=== PATIENT | female | born 1930 | race Caucasian/White ===

== ENCOUNTER 2017-12-28 13:10 | Inpatient (IN) ==
[2017-12-28] MEDS ORDERED: LACTATED RINGERS 1,000 ML IV ONE (13:20)
--- NOTE | 2017-12-28 13:22 | Emergency Department Note ---
General Adult HPI - General Chief complaint: Recheck/Abnormal Lab/Rx Stated complaint: low potassium Time Seen by Provider: 12/28/17 13:19 Source: patient Mode of arrival: ambulatory Limitations: no limitations - History of Present Illness HPI Narrative: 87-year-old female extremely hard of hearing living at [facility] presenting with 3 day history of reported productive cough sounds of crackles from the attending physician at [facility] as well as reported hypokalemia at 2.9 at [facility]. She presents today meeting SIRS criteria with fever and tachycardia, HPI extremely limited secondary to patient's mental status and extremely hard of hearing. She denies pain. She is accompanied by multiple family members who states that she was previously at [facility] due to an acute on chronic kidney failure with most recent kidney function as a 12/22 and 1.4. No other symptoms present. - Related Data Home Medications Medication Instructions Recorded Confirmed Acetaminophen [Arthritis Pain 650 mg PO Q4H PRN 12/28/17 12/28/17 Relief] Bisacodyl [Dulcolax] 10 mg UT DAILYP PRN 12/28/17 12/28/17 Cholecalciferol (Vitamin D3) [D3 2,000 unit PO DAILY 12/28/17 12/28/17 Dots] Diltiazem HCl [Diltiazem ER] 180 mg PO DAILY 12/28/17 12/28/17 Furosemide [Lasix] 20 mg PO BID 12/28/17 12/28/17 Insulin Glargine,Hum.rec.anlog 10 unit SQ QHS 12/28/17 12/28/17 [Lantus Solostar] Ipratropium/Albuterol [Duoneb] 3 ml NEB Q4H PRN 12/28/17 12/28/17 Loratadine [Claritin] 10 mg PO DAILY 12/28/17 12/28/17 Magnesium Hydroxide [Milk of 30 ml PO BIDP PRN 12/28/17 12/28/17 Magnesia] Metolazone [Zaroxolyn] 2.5 mg PO DAILY 12/28/17 12/28/17 Metoprolol Tartrate [Lopressor] 25 mg PO BID 12/28/17 12/28/17 Montelukast [Singular] 10 mg PO DAILY 12/28/17 12/28/17 Na Phos,M-B/Na Phos,Di-Ba [Fleets 1 dose UT DAILYP PRN 12/28/17 12/28/17 Adult] PARoxetine HCL [Paroxetine HCl] 20 mg PO DAILY 12/28/17 12/28/17 Polyethylene Glycol 3350 [Miralax] 17 gm PO DAILYP PRN 12/28/17 12/28/17 Warfarin [Coumadin] 1 mg PO DAILY 12/28/17 12/28/17 Warfarin [Coumadin] 5 mg PO DAILY 12/28/17 12/28/17 Allergies Allergy/AdvReac Type Severity Reaction Status Date / Time morphine Allergy Verified 12/28/17 13:18 Review of Systems All systems ED: reviewed and negative except as stated. Past Medical History - Past Medical History Source: old records reviewed, nursing notes reviewed Medical history: Reports: atrial fibrillation, CHF, coronary artery disease, dementia, other (CKD) - Social History smoking status: Unknown if ever smoked Physical Exam Limitations: no limitations General appearance: alert, lethargic Head: atraumatic, normocephalic Eye: Present: normal appearance, PERRL, EOMI ENT: mucous membranes dry Neck: Present: normal inspection, full ROM. Absent: tenderness Chest: Present: normal inspection, symmetric chest wall rise Respiratory: Present: wheezes (wet crackles bibasilar, distant sounds), accessory muscle use, prolonged expiratory phase Cardiovascular: Present: tachycardia, irregular rhythm Abdominal: Present: soft, normal bowel sounds. Absent: distention, tenderness, guarding, rebound Neurological: Present: alert, other (extremely hard of hearing). Absent: oriented X3 Skin: Present: dry, pallor Course Vital Signs Temperature 100.7 F H 12/28/17 13:12 Pulse Rate 103 H 12/28/17 13:12 Respiratory Rate 22 12/28/17 13:12 Blood Pressure 113/72 12/28/17 13:12 Pulse Oximetry (%) 92 12/28/17 13:12 Temperature 100.7 F H 12/28/17 13:12 Pulse Rate 72 12/28/17 15:48 Respiratory Rate 23 H 12/28/17 15:48 Blood Pressure 119/58 12/28/17 15:46 Pulse Oximetry (%) 95 12/28/17 15:48 Medical Decision Making - [facility] Narrative Medical decision making narrative: patient presenting with hypokalemia on routine lab draw at 2.9, however came in meeting SIRS criteria. CBC, CMP, venous lactate, procalcitonin, XR chest obtained and blood culture x 1, with XR demonstrating moderate right basilar infiltrate, CBC demonstrating leukocytosis at 15,800 with granulocyte predominance. Baseline Cr 1.4, patient has slight JOHN with Cr 1.6, eGFR 28, with venous lactic acid normal at 2.0. EKG demonstrating stable atrial fibrillation. SEPSIS protocol observed, patient given 750mg IV Levaquin, 1g Rocephin. Admitted for Sepsis 2/2 CAP with acute kidney injury and hypokalemia at 3.0, with Dr. Yung admitting. Patient DNR/DNI full medical interventions. - Lab Data Lab results reviewed: Yes I reviewed the patient's lab results. Result diagrams: 12/28/17 14:07 12/28/17 14:07 Lab Results 12/28/17 12/28/17 12/28/17 Range/Units 14:07 14:07 14:07 WBC 14.6 H (4.5-11.0) K/mcL RBC 4.52 (4.00-5.20) M/mcL Hgb 13.1 (12.0-15.0) g/dL Hct 40.6 (36.0-48.0) % MCV 89.9 (80.0-100.0) fL MCH 29.0 (26.0-34.0) pg MCHC 32.2 (31.0-36.0) g/dL RDW 15.2 H (11.5-14.5) % Plt Count 338 (140-440) K/mcL MPV 10.3 (7.4-10.4) fL Gran % 81.4 H (38.0-78.0) % Lymph % (Auto) 7.0 L (15.5-49.0) % [place] % (Auto) 9.8 (1.0-12.0) % Eos % (Auto) 1.6 (0.0-7.0) % Baso % (Auto) 0.2 (0.0-2.0) % Gran # 11.9 H (1.8-8.0) K/mcL Lymph # (Auto) 1.0 L (1.5-4.8) K/mcL [place] # (Auto) 1.4 H (0.1-0.9) K/mcL Eos # (Auto) 0.2 (0.0-0.7) K/mcL Baso # (Auto) 0 (0.0-0.3) K/mcL PT (11.9-14.5) sec INR (0.9-1.1) VBG Lactic Acid 2.1 (0.5-2.2) mmol/L Sodium 132 L (133-145) mmol/L Potassium 3.0 L (3.3-5.1) mmol/L Chloride 87 L (96-108) mmol/L Carbon Dioxide 31 H (22-30) mmol/L Anion Gap 14.0 (8-16) BUN 53 H (8-23) mg/dl Creatinine 1.6 H (0.6-1.1) mg/dl GFR Calculation 28 Glucose 232 H (70-105) mg/dL Calcium 9.7 (8.6-10.4) mg/dl Total Bilirubin 0.6 (0.0-1.0) mg/dL AST 39 H (0-37) U/l ALT 37 (0-40) U/l Alkaline Phosphatase 96 (39-117) U/L NT-Pro-B Natriuret Pep 4727.0 H (0-450) pg/ml Total Protein 7.3 (5.9-8.4) gm/dL Albumin 3.5 (3.2-5.2) gm/dL Globulin 3.8 H (2.2-3.7) gm/dL Albumin/Globulin Ratio 0.9 L (1.0-2.3) Procalcitonin (<0.10) ng/mL Urine Color Urine Appearance Urine pH (5.0-9.0) Ur Specific [place] (1.000-1.035) Urine Protein (NEG) mg/dL Urine Glucose (UA) (NEG) mg/dL Urine Ketones (NEG) mg/dL Urine Occult Blood (<0.03) mg/dL Urine Nitrate (NEG) Urine Bilirubin (NEG) mg/dL Urine Urobilinogen (NEG) mg/dL Ur Leukocyte Esterase (NEG) /uL Urine RBC (0-1) /hpf Urine WBC (0-4) /hpf Ur Squamous Epith Cells (0-4) /hpf Ur Transition Epith Cell (0-2) /hpf Urine Bacteria (0) /hpf Urine Mucus (0) /hpf Ur Culture Indicated? 12/28/17 12/28/17 12/28/17 Range/Units 14:07 14:07 14:49 WBC (4.5-11.0) K/mcL RBC (4.00-5.20) M/mcL Hgb (12.0-15.0) g/dL Hct (36.0-48.0) % MCV (80.0-100.0) fL MCH (26.0-34.0) pg MCHC (31.0-36.0) g/dL RDW (11.5-14.5) % Plt Count (140-440) K/mcL MPV (7.4-10.4) fL Gran % (38.0-78.0) % Lymph % (Auto) (15.5-49.0) % [place] % (Auto) (1.0-12.0) % Eos % (Auto) (0.0-7.0) % Baso % (Auto) (0.0-2.0) % Gran # (1.8-8.0) K/mcL Lymph # (Auto) (1.5-4.8) K/mcL [place] # (Auto) (0.1-0.9) K/mcL Eos # (Auto) (0.0-0.7) K/mcL Baso # (Auto) (0.0-0.3) K/mcL PT 31.6 H (11.9-14.5) sec INR 3.0 H (0.9-1.1) VBG Lactic Acid (0.5-2.2) mmol/L Sodium (133-145) mmol/L Potassium (3.3-5.1) mmol/L Chloride (96-108) mmol/L Carbon Dioxide (22-30) mmol/L Anion Gap (8-16) BUN (8-23) mg/dl Creatinine (0.6-1.1) mg/dl GFR Calculation Glucose (70-105) mg/dL Calcium (8.6-10.4) mg/dl Total Bilirubin (0.0-1.0) mg/dL AST (0-37) U/l ALT (0-40) U/l Alkaline Phosphatase (39-117) U/L NT-Pro-B Natriuret Pep (0-450) pg/ml Total Protein (5.9-8.4) gm/dL Albumin (3.2-5.2) gm/dL Globulin (2.2-3.7) gm/dL Albumin/Globulin Ratio (1.0-2.3) Procalcitonin 0.12 (<0.10) ng/mL Urine Color Yellow Urine Appearance Clear Urine pH 5.0 (5.0-9.0) Ur Specific [place] 1.011 (1.000-1.035) Urine Protein Neg (NEG) mg/dL Urine Glucose (UA) Negative (NEG) mg/dL Urine Ketones Neg (NEG) mg/dL Urine Occult Blood Neg (<0.03) mg/dL Urine Nitrate Neg (NEG) Urine Bilirubin Neg (NEG) mg/dL Urine Urobilinogen Neg (NEG) mg/dL Ur Leukocyte Esterase Neg (NEG) /uL Urine RBC 1 (0-1) /hpf Urine WBC 7 H (0-4) /hpf Ur Squamous Epith Cells 7 H (0-4) /hpf Ur Transition Epith Cell 1 (0-2) /hpf Urine Bacteria 0 (0) /hpf Urine Mucus Few (0) /hpf Ur Culture Indicated? No - Radiology Data Radiology results reviewed: Yes I reviewed the patient's radiology results. Disposition Pt seen by [facility]/PA only: No Clinical Impression: Hypokalemia Sepsis Qualifiers: Sepsis type: sepsis due to unspecified organism Qualified Code(s): A41.9 - Sepsis, unspecified organism CAP (community acquired pneumonia) Qualifiers: Laterality: left Lung location: upper lobe of lung Qualified Code(s): J18.1 - Lobar pneumonia, unspecified organism Acute on chronic kidney failure Qualifiers: Acute renal failure type: unspecified Chronic kidney disease stage: stage 4 ( severe) Qualified Code(s): N17.9 - Acute kidney failure, unspecified; N18.4 - Chronic kidney disease, stage 4 (severe) Disposition: Xfer [facility] Referrals: Cali Pride MD [Family Provider] -
--- NOTE | 2017-12-28 14:01 | XRay Report ---
CLINICAL INFORMATION: Cough COMPARISON: None. FINDINGS: Marked cardiomegaly appreciated. Mediastinum and pulmonary vessels are normal. Moderate sized alveolar infiltrate appear mediastinal left upper lobe appreciated. Is mild atelectasis in the right base. No effusion severe T11 and moderate T4-T8 compression fractures noted IMPRESSION: 1. Moderate left upper lobe infiltrate 2. Marked cardiomegaly, but no evidence of CHF 3. Osteoporotic compression fractures Interpreted and Authenticated by: Sourav Camacho 12/28/17
[2017-12-28] MEDS ORDERED: cefTRIAXone 1 GM VIAL IV ONE (14:07)
[2017-12-28] MEDS ORDERED: LEVOFLOXACIN 750 MG/150 ML BAG IV ONE (14:07)
[2017-12-28 14:48] LABS: Basophils # (Auto) 0 K/mcL (0.0-0.3); Basophils % (Auto) 0.2 % (0.0-2.0); Eosinophils # (Auto) 0.2 K/mcL (0.0-0.7); Eosinophils % (Auto) 1.6 % (0.0-7.0); Granulocytes % (Auto) 81.4 % (38.0-78.0); Mean Cell Volume 89.9 fL (80.0-100.0); Mean Corpuscular HGB Conc 32.2 g/dL (31.0-36.0); Monocytes # (Auto) 1.4 K/mcL (0.1-0.9); Monocytes % (Auto) 9.8 % (1.0-12.0); Platelet Count 338 K/mcL (140-440); RBC 4.52 M/mcL (4.00-5.20); Red Cell Distribution Width 15.2 % (11.5-14.5)
[2017-12-28 15:07] LABS: ALT/SGPT 37 U/l (0-40); Albumin 3.5 gm/dL (3.2-5.2); Albumin/Globulin Ratio 0.9 (1.0-2.3); Alkaline Phosphatase 96 U/L (39-117); Blood Urea Nitrogen 53 mg/dl (8-23)
[2017-12-28 15:21] LABS: Appearance,Urine CLEAR; Bilirubin,Urine NEG (NEG); Color,Urine YELLOW; Glucose,Urine (UA) NEGATIVE (NEG); Leukocyte Esterase,Urine NEG /uL (NEG); Protein,Urine NEG (NEG); Specific Gravity,Urine 1.011 (1.000-1.035); Urine Blood NEG mg/dL (<0.03); Urobilinogen,Urine NEG (NEG)
[2017-12-28 15:40] LABS: Bacteria,Urine 0 /hpf (0); Mucus,Urine FEW /hpf (0); Urine RBC 1 /hpf (0-1); Urine Squamous Epithelial Cell 7 /hpf (0-4); Urine Transitional Epi Cells 1 /hpf (0-2); Urine WBC 7 /hpf (0-4)
[2017-12-28] MEDS ORDERED: DEXTROSE 50% 50 ML VIAL IV PRN (17:47)
[2017-12-28] MEDS ORDERED: ACETAMINOPHEN 325 MG TABLET PO PRN ×2 (17:47)
[2017-12-28] MEDS ORDERED: ONDANSETRON 4 MG/2 ML VIAL IV PRN (17:47)
[2017-12-28] MEDS ORDERED: DEXTROSE 31 GM ORAL.SUSP PO PRN (17:47)
[2017-12-28] MEDS: INSULIN LISPRO 1 UNIT/0.01 ML UNIT SQ SCH ×2 (18:40→22:09)
[2017-12-28] MEDS: LACTATED RINGERS 1,000 ML IV SCH (18:48)
[2017-12-28] MEDS: IPRATROPIUM/ALBUTEROL 3 ML AMPUL.NEB NEB SCH (19:14)
[2017-12-28 19:50] LABS: Hemoglobin A1C 6.3 % HGB (4.0-6.0)
--- NOTE | 2017-12-28 20:49 | Internal Med History&Physical ---
Medical - H&P: [facility] Patient information: Note initiated : 12/28/17 at 8:46 pm Service Date, if different from initiated Date: [] Patient: Pratibha Palcaio 87 y/o F admitted on 12/28/17 for low potassium. Chief complaint: Cough, confusion History of present illness: The patient is an 7-year-old female with a history of atrial fibrillation, dementia, chronic kidney disease stage III, congestive heart failure, type 2 diabetes presents from her living facility with confusion, chills and 3 days of cough. History is obtained speaking to the patient's family, speaking with Dr. Reid from the ED and in reviewing records. Patient is unable to give history due to dementia and hard of hearing. For about the last 3 days, the patient has had a cough. Apparently rales were also noted today. Family tells me that today while trying D lunch she seemed to be confused had difficulty doing so. There was no apparent choking or coughing associated with trying to eat. She also is feeling chilled at this afternoon. Today she seemed to be shivering and cold at times as well. Patient 's family says she always has some cough but it seems to be worse than usual. She normally uses nebulizer once or twice a day. In addition the patient had potassium of 2.6 and was sent to the ED due to that. The emergency department, the patient is noted at white count of 14,000, febrile to 100.7, was mildly tachycardic with a pulse of 103. Chest radiograph shows left upper lobe infiltrate, though the right lower lobe also appears to have some infiltrate versus atelectasis. She is being admitted the hospital for sepsis from pneumonia. Other than above, remainder review of history cannot really be obtained reliably due to her underlying dementia. Family is unaware of any nausea, vomiting, diarrhea, or other infectious symptoms. ROS unobtainable: due to mental status Medical - H&P: [facility] Medical history: Type 2 diabetes mellitus, recently off of metformin, now on Lantus Congestive heart failure with cardiomegaly Heart appearing Chronic kidney disease stage III History of acute kidney injury about 2 weeks ago, creatinine to 2.6, felt due to dehydration and Celebrex. Creatinine 1.4 at discharge from [facility] last week. Dementia Atrial fibrillation, on warfarin Home oxygen, 1 lpm when in bed Surgical history: Unknown Pertinent family history: No family history of lung disease according to the family Social history: The patient had been living independently near [place] with daytime caregivers. She was hospitalized at [facility] for about 6 days earlier this month due to acute kidney injury, has been in [facility] since discharge from there last week. She has never smoked. She does not drink alcohol. Medical - H&P: Meds Home Medications Medication Instructions Recorded Confirmed Type Cholecalciferol (Vitamin D3) [D3 2,000 unit PO DAILY 12/28/17 12/29/17 History Dots] Diltiazem HCl [Diltiazem ER] 180 mg PO DAILY 12/28/17 12/29/17 History Furosemide [Lasix] 20 mg PO BID 12/28/17 12/29/17 History Insulin Glargine,Hum.rec.anlog 10 unit SQ QHS 12/28/17 12/29/17 History [Lantus Solostar] Loratadine [Claritin] 10 mg PO DAILY 12/28/17 12/29/17 History Metolazone [Zaroxolyn] 2.5 mg PO DAILY 12/28/17 12/29/17 History Metoprolol Tartrate [Lopressor] 25 mg PO BID 12/28/17 12/29/17 History Montelukast [Singular] 10 mg PO DAILY 12/28/17 12/29/17 History PARoxetine HCL [Paroxetine HCl] 20 mg PO DAILY 12/28/17 12/29/17 History Warfarin [Coumadin] 1 mg PO DAILY 12/28/17 12/29/17 History Warfarin [Coumadin] 5 mg PO DAILY 12/28/17 12/29/17 History Accu-Chek 1 each FS BID 12/29/17 12/29/17 History Potassium Chloride [Kdur] 20 meq PO DAILY 12/29/17 12/29/17 History Allergies Allergy/AdvReac Type Severity Reaction Status Date / Time morphine Allergy Verified 12/28/17 13:18 Medical - H&P: Exam - Constitutional Vitals: Temp Pulse Resp BP Pulse Ox 98.9 F 72 26 H 97/65 97 12/28/17 18:30 12/28/17 19:29 12/28/17 19:29 12/28/17 20:01 12/28/17 20:01 GENERAL: Alert, hard of hearing, tends to answer in one-word sentences HEENT: Atraumatic. PERRL, conjunctiva clear, no scleral icterus. Hearing grossly intact. Oropharynx with tacky mucous membranes, no lip or gum lesions. Tongue midline. NECK: Supple without meningismus, no thyromegaly RESPIRATORY: Rales in L>R bases, no wheezes or rhonchi. Respiratory effort is unlabored. CARDIOVASCULAR: Irregularlyl irregular rate and rhythm, 2/6 apical systolic murmur, no gallop or rub. No peripheral edema. Carotid pulses 2+ without bruit. GI: Abdomen soft, mild discomfort with palpation, but not angelina tenderness, no guarding or rebound. No hepatosplenomegaly. LYMPHATIC: No cervical or supraclavicular lymphadenopathy MUSCULOSKELETAL: No joint erythema or swelling, normal range of motion in extremities. Muscle mass normal for age. SKIN: Warm, dry. Chronic stasis changes/pigmentation in bilateral lower extremities. Dressed skin wound on the mid lateral right leg, no surrounding erythema. Skin turgor decreased. NEUROLOGIC: Cranial nerves II through XII grossly intact except for hard of hearing. Sensation intact to light touch bilaterally. PSYCHIATRIC: Alert, oriented to self, slow to respond. Medical - H&P: [facility]lt - Labs CBC & Chem 7: 12/29/17 03:35 12/29/17 03:35 Labs: Short CBC 12/28/17 Range/Units 14:07 WBC 14.6 H (4.5-11.0) K/mcL Hgb 13.1 (12.0-15.0) g/dL Hct 40.6 (36.0-48.0) % Plt Count 338 (140-440) K/mcL [facility] 12/28/17 14:07 Sodium 132 L Potassium 3.0 L Chloride 87 L Carbon Dioxide 31 H BUN 53 H Creatinine 1.6 H Glucose 232 H Calcium 9.7 Liver Function 12/28/17 Range/Units 14:07 Total Bilirubin 0.6 (0.0-1.0) mg/dL AST 39 H (0-37) U/l ALT 37 (0-40) U/l Alkaline Phosphatase 96 (39-117) U/L Albumin 3.5 (3.2-5.2) gm/dL Urine 12/28/17 Range/Units 14:49 Urine Color Yellow Urine Appearance Clear Urine pH 5.0 (5.0-9.0) Ur Specific [place] 1.011 (1.000-1.035) Urine Protein Neg (NEG) mg/dL Urine Glucose (UA) Negative (NEG) mg/dL - EKG Data -: EKG Reviewed by Myself (AF with VPC, no acute injury) - Impressions CXR, images reviewed FINDINGS: Marked cardiomegaly appreciated. Mediastinum and pulmonary vessels are normal. Moderate sized alveolar infiltrate appear mediastinal left upper lobe appreciated. Is mild atelectasis in the right base. No effusion severe T11 and moderate T4-T8 compression fractures noted IMPRESSION: 1. Moderate left upper lobe infiltrate 2. Marked cardiomegaly, but no evidence of CHF 3. Osteoporotic compression fractures Medical - H&P: A/P (1) Sepsis Current visit: Yes Status: Acute (2) CAP (community acquired pneumonia) Current visit: Yes Status: Acute (3) CKD (chronic kidney disease) stage 3, GFR 30-59 ml/min Current visit: Yes Status: Acute (4) Atrial fibrillation Current visit: Yes Status: Acute (5) Type 2 diabetes mellitus without complications Current visit: Yes Status: Acute - Narrative A/P Narrative: 87-year-old female presenting with decreased functional capacity, 3 days of cough, subjective chills, found to have tachycardia, fever, leukocytosis and infiltrate consistent with sepsis from pneumonia. Sepsis. Source appears to be the lungs. Not severe sepsis. Lactate normal, hemodynamically stable other mild tachycardia. Plan: Inpatient admission, cultures obtained, antibiotics given in the ED, continue, follow up cultures, hydrate Pneumonia. Read as left upper lobe infiltrate, appears to have some infiltrate in the right lower, also has rales on the left base. Suspect this is the source of her sepsis. Plan: Received levofloxacin in the ED, continue same. Renally dose 750 mg every 48 hours. Chronic kidney disease stage III. Recent acute kidney injury with creatinine up to 2.6, down to 1.4 discharged from [facility]. Now creatinine 1.6 with GFR calculated my slightly below 30. This may be her new baseline. Plan: Avoid nephrotoxins, renally dose meds, hydrate gently, follow creatinine. Congestive heart failure. This is listed as a diagnosis. Apparently was volume overloaded when at [facility] earlier this month. Echocardiogram results not immediately available, though does not appear to be volume overloaded currently. Plan: Monitor, hold diuretics for now, we'll attempt to get further records on ejection fraction. Type 2 diabetes mellitus, previously on metformin. Metformin stopped, secondary to renal function. Plan: Continue home Lantus, and sliding scale insulin, check hemoglobin A1c. Dementia. Patient at risk for delirium Plan: Reorientation, supportive care. Atrial fibrillation. Currently rate controlled by the time I see her after she is received some fluids. Plan: Telemetry monitoring, continuing home regimen, including pharmacy dosing of warfarin. CODE STATUS, discussed with family, is DNR. Prophylaxis: Patient is on warfarin for stroke prophylaxis and is fully anticoagulated.
[2017-12-28] MEDS: 0.9 % SODIUM CHLORIDE 10 ML SYRINGE IV SCH (22:08)
[2017-12-29] MEDS: IPRATROPIUM/ALBUTEROL 3 ML AMPUL.NEB NEB SCH ×5 (00:50→23:59)
[2017-12-29 04:59] LABS: Basophils # (Auto) 0 K/mcL (0.0-0.3); Basophils % (Auto) 0.2 % (0.0-2.0); Eosinophils # (Auto) 0.3 K/mcL (0.0-0.7); Eosinophils % (Auto) 2.4 % (0.0-7.0); Granulocytes % (Auto) 69.8 % (38.0-78.0); Lymphocytes # (Auto) 1.5 K/mcL (1.5-4.8); Lymphocytes % (Auto) 14.3 % (15.5-49.0); Mean Cell Volume 89.5 fL (80.0-100.0); Mean Corpuscular HGB Conc 33.2 g/dL (31.0-36.0); Mean Corpuscular Hemoglobin 29.7 pg (26.0-34.0); Monocytes # (Auto) 1.4 K/mcL (0.1-0.9); Monocytes % (Auto) 13.3 % (1.0-12.0); Platelet Count 272 K/mcL (140-440); RBC 3.91 M/mcL (4.00-5.20); Red Cell Distribution Width 15.7 % (11.5-14.5)
[2017-12-29 05:41] LABS: Blood Urea Nitrogen 45 mg/dl (8-23)
[2017-12-29] MEDS ORDERED: POTASSIUM CHLORIDE 40 MEQ in DEXTROSE 5% IN WATER 500 ML IV ONE (05:59)
[2017-12-29] MEDS ORDERED: POTASSIUM CHLORIDE 20 MEQ PACKET PO PRN (06:00)
[2017-12-29] MEDS: 0.9 % SODIUM CHLORIDE 10 ML SYRINGE IV SCH ×3 (07:19→22:10)
[2017-12-29] MEDS: INSULIN LISPRO 1 UNIT/0.01 ML UNIT SQ SCH ×4 (07:49→22:10)
[2017-12-29] MEDS: LACTATED RINGERS 1,000 ML IV SCH ×2 (07:51→21:30)
[2017-12-29] MEDS: DILTIAZEM 180 MG CAP.XL.24H PO SCH (11:44)
[2017-12-29] MEDS: METOPROLOL TARTRATE 25 MG TABLET PO SCH ×2 (11:44→22:10)
--- NOTE | 2017-12-29 13:42 | General Surgery Consult Note ---
History of Present Illness Patient information: Note initiated : 12/29/17 at 1:36 pm Service Date, if different from initiated Date: [] Patient: Pratibha Palacio 87 y/o F admitted on 12/28/17 for low potassium. Chief Complaint: [] Consult date: 12/29/17 Requesting physician: Sadie Morfin (Skin / wound Care) History of present illness: I saw this patient in ICU along with Yvette RN. Subsequently discussed her treatment with Dr. Shelbie MD Hospitalist Physician. 87/F. Resident of [facility]. Admitted with SIRS isabella to urinary and pulmonary etiology. Undergoing treatment for same. She was noted to have a skin tear Right lower lateral right leg. Grade 1. There is minimal erythema of sacral skin without any breakdown. Patient has sever deafness and is poor historian. I reviewed EHR and got further information from nursing staff. Medications and Allergies Home Medications Medication Instructions Recorded Confirmed Type Cholecalciferol (Vitamin D3) [D3 2,000 unit PO DAILY 12/28/17 12/29/17 History Dots] Diltiazem HCl [Diltiazem ER] 180 mg PO DAILY 12/28/17 12/29/17 History Furosemide [Lasix] 20 mg PO BID 12/28/17 12/29/17 History Insulin Glargine,Hum.rec.anlog 10 unit SQ QHS 12/28/17 12/29/17 History [Lantus Solostar] Loratadine [Claritin] 10 mg PO DAILY 12/28/17 12/29/17 History Metolazone [Zaroxolyn] 2.5 mg PO DAILY 12/28/17 12/29/17 History Metoprolol Tartrate [Lopressor] 25 mg PO BID 12/28/17 12/29/17 History Montelukast [Singular] 10 mg PO DAILY 12/28/17 12/29/17 History PARoxetine HCL [Paroxetine HCl] 20 mg PO DAILY 12/28/17 12/29/17 History Warfarin [Coumadin] 1 mg PO DAILY 12/28/17 12/29/17 History Warfarin [Coumadin] 5 mg PO DAILY 12/28/17 12/29/17 History Accu-Chek 1 each FS BID 12/29/17 12/29/17 History Potassium Chloride [Kdur] 20 meq PO DAILY 12/29/17 12/29/17 History Allergies Allergy/AdvReac Type Severity Reaction Status Date / Time morphine Allergy Verified 12/28/17 13:18 Exam Temp Pulse Resp BP Pulse Ox 98.9 F 90 18 114/80 95 12/29/17 11:50 12/29/17 07:49 12/29/17 11:50 12/29/17 11:50 12/29/17 11:50 - General physical appearance cachectic, chronically ill - Eyes PERRL, normal ocular movement - ENT normal pinna, normal nares, no congestion, decreased hearing, other (Severe deafness. GUNTER in [place]) - Head Head exam IM: Present: atraumatic, normal inspection, normocephalic - Neck no masses, no bruits, trachea midline, no venous distension - Cardiovascular Cardiovascular exam IM: Present: irregular rhythm - Respiratory rales: bilateral (scattered) - Abdomen Abdomen: Present: soft, non tender, bowel sounds - Genitourinary Present: other (Catheter draning clear urine) - Integumentary Present: other (Grade 1 skin tear right lower lateral leg < 1 CM. Minimal erythema left sacral region. NO skin breakdown and no crepitation) - Neurologic Present: normal coordination, other (Moves all extremities. Detailed exam NOT done. ) - Musculoskeletal Present: other (Bed confined. ) - Psychiatric Present: other (Cooperatvie. Severe deafness. Obeys commands. ) Results - Labs 12/29/17 03:35 12/29/17 03:35 Abnormal lab results 12/28/17 12/28/17 12/28/17 Range/Units 14:07 14:07 14:07 WBC 14.6 H (4.5-11.0) K/mcL RBC (4.00-5.20) M/mcL Hgb (12.0-15.0) g/dL Hct (36.0-48.0) % RDW 15.2 H (11.5-14.5) % MPV (7.4-10.4) fL Gran % 81.4 H (38.0-78.0) % Lymph % (Auto) 7.0 L (15.5-49.0) % Dickens % (Auto) (1.0-12.0) % Gran # 11.9 H (1.8-8.0) K/mcL Lymph # (Auto) 1.0 L (1.5-4.8) K/mcL Dickens # (Auto) 1.4 H (0.1-0.9) K/mcL PT 31.6 H (11.9-14.5) sec INR 3.0 H (0.9-1.1) Sodium 132 L (133-145) mmol/L Potassium 3.0 L (3.3-5.1) mmol/L Chloride 87 L (96-108) mmol/L Carbon Dioxide 31 H (22-30) mmol/L BUN 53 H (8-23) mg/dl Creatinine 1.6 H (0.6-1.1) mg/dl Glucose 232 H (70-105) mg/dL Hemoglobin A1c (4.0-6.0) % HGB AST 39 H (0-37) U/l NT-Pro-B Natriuret Pep 4727.0 H (0-450) pg/ml Globulin 3.8 H (2.2-3.7) gm/dL Albumin/Globulin Ratio 0.9 L (1.0-2.3) Urine WBC (0-4) /hpf Ur Squamous Epith Cells (0-4) /hpf 12/28/17 12/28/17 12/29/17 Range/Units 14:07 14:49 03:35 WBC (4.5-11.0) K/mcL RBC 3.91 L (4.00-5.20) M/mcL Hgb 11.6 L (12.0-15.0) g/dL Hct 35.0 L (36.0-48.0) % RDW 15.7 H (11.5-14.5) % MPV 10.5 H (7.4-10.4) fL Gran % (38.0-78.0) % Lymph % (Auto) 14.3 L (15.5-49.0) % Dickens % (Auto) 13.3 H (1.0-12.0) % Gran # (1.8-8.0) K/mcL Lymph # (Auto) (1.5-4.8) K/mcL Dickens # (Auto) 1.4 H (0.1-0.9) K/mcL PT (11.9-14.5) sec INR (0.9-1.1) Sodium (133-145) mmol/L Potassium (3.3-5.1) mmol/L Chloride (96-108) mmol/L Carbon Dioxide (22-30) mmol/L BUN (8-23) mg/dl Creatinine (0.6-1.1) mg/dl Glucose (70-105) mg/dL Hemoglobin A1c 6.3 H (4.0-6.0) % HGB AST (0-37) U/l NT-Pro-B Natriuret Pep (0-450) pg/ml Globulin (2.2-3.7) gm/dL Albumin/Globulin Ratio (1.0-2.3) Urine WBC 7 H (0-4) /hpf Ur Squamous Epith Cells 7 H (0-4) /hpf 12/29/17 12/29/17 Range/Units 03:35 03:35 WBC (4.5-11.0) K/mcL RBC (4.00-5.20) M/mcL Hgb (12.0-15.0) g/dL Hct (36.0-48.0) % RDW (11.5-14.5) % MPV (7.4-10.4) fL Gran % (38.0-78.0) % Lymph % (Auto) (15.5-49.0) % Dickens % (Auto) (1.0-12.0) % Gran # (1.8-8.0) K/mcL Lymph # (Auto) (1.5-4.8) K/mcL Dickens # (Auto) (0.1-0.9) K/mcL PT 32.0 H (11.9-14.5) sec INR 3.1 H (0.9-1.1) Sodium (133-145) mmol/L Potassium 2.6 L* (3.3-5.1) mmol/L Chloride 91 L (96-108) mmol/L Carbon Dioxide 33 H (22-30) mmol/L BUN 45 H (8-23) mg/dl Creatinine 1.4 H (0.6-1.1) mg/dl Glucose (70-105) mg/dL Hemoglobin A1c (4.0-6.0) % HGB AST (0-37) U/l NT-Pro-B Natriuret Pep (0-450) pg/ml Globulin (2.2-3.7) gm/dL Albumin/Globulin Ratio (1.0-2.3) Urine WBC (0-4) /hpf Ur Squamous Epith Cells (0-4) /hpf Diabetes panel 12/28/17 12/28/17 12/29/17 Range/Units 14:07 14:07 03:35 Sodium 132 L 135 (133-145) mmol/L Potassium 3.0 L 2.6 L* (3.3-5.1) mmol/L Chloride 87 L 91 L (96-108) mmol/L Carbon Dioxide 31 H 33 H (22-30) mmol/L BUN 53 H 45 H (8-23) mg/dl Creatinine 1.6 H 1.4 H (0.6-1.1) mg/dl Glucose 232 H 98 (70-105) mg/dL Hemoglobin A1c 6.3 H (4.0-6.0) % HGB Calcium 9.7 9.2 (8.6-10.4) mg/dl AST 39 H (0-37) U/l ALT 37 (0-40) U/l Alkaline Phosphatase 96 (39-117) U/L Total Protein 7.3 (5.9-8.4) gm/dL Albumin 3.5 (3.2-5.2) gm/dL Calcium panel 12/28/17 12/29/17 Range/Units 14:07 03:35 Calcium 9.7 9.2 (8.6-10.4) mg/dl Albumin 3.5 (3.2-5.2) gm/dL Pituitary panel 12/28/17 12/29/17 Range/Units 14:07 03:35 Sodium 132 L 135 (133-145) mmol/L Potassium 3.0 L 2.6 L* (3.3-5.1) mmol/L Chloride 87 L 91 L (96-108) mmol/L Carbon Dioxide 31 H 33 H (22-30) mmol/L BUN 53 H 45 H (8-23) mg/dl Creatinine 1.6 H 1.4 H (0.6-1.1) mg/dl Glucose 232 H 98 (70-105) mg/dL Calcium 9.7 9.2 (8.6-10.4) mg/dl Adrenal panel 12/28/17 12/29/17 Range/Units 14:07 03:35 Sodium 132 L 135 (133-145) mmol/L Potassium 3.0 L 2.6 L* (3.3-5.1) mmol/L Chloride 87 L 91 L (96-108) mmol/L Carbon Dioxide 31 H 33 H (22-30) mmol/L BUN 53 H 45 H (8-23) mg/dl Creatinine 1.6 H 1.4 H (0.6-1.1) mg/dl Glucose 232 H 98 (70-105) mg/dL Calcium 9.7 9.2 (8.6-10.4) mg/dl Total Bilirubin 0.6 (0.0-1.0) mg/dL AST 39 H (0-37) U/l ALT 37 (0-40) U/l Alkaline Phosphatase 96 (39-117) U/L Total Protein 7.3 (5.9-8.4) gm/dL Albumin 3.5 (3.2-5.2) gm/dL All other labs normal. Assessment and Plan (1) Sepsis Skin Tear : RIGHT lower lateral leg. Recommend Mepilex bordered foam dressing. Change twice a week. Sacral Erythema LEFT . < 2 CM. Recommend Aquacel Foam bordered dressing. And Change position per TAPS q 2 hrly Status: Acute Qualifiers: Sepsis type: sepsis due to unspecified organism Qualified Code(s): A41.9 - Sepsis, unspecified organism (2) Hypokalemia Status: Acute (3) Acute on chronic kidney failure Status: Acute Qualifiers: Acute renal failure type: unspecified Chronic kidney disease stage: stage 4 (severe) Qualified Code(s): N17.9 - Acute kidney failure, unspecified; N18.4 - Chronic kidney disease, stage 4 (severe) (4) Atrial fibrillation Status: Acute (5) Type 2 diabetes mellitus without complications Status: Acute
--- NOTE | 2017-12-29 15:55 | Internal Med Progress Note ---
Medical - PN: Subj Patient information: Note initiated : 12/29/17 at 3:53 pm Service Date, if different from initiated Date: [] Patient: Pratibha Palacio 87 y/o F admitted on 12/28/17 for low potassium. Chief Complaint: f/u sepsis, PNA Interval history: 12/28 The patient is an 7-year-old female with a history of atrial fibrillation, dementia, chronic kidney disease stage III, congestive heart failure, type 2 diabetes presents from her living facility with confusion, chills and 3 days of cough. History is obtained speaking to the patient's family, speaking with Dr. Reid from the ED and in reviewing records. Patient is unable to give history due to dementia and hard of hearing. For about the last 3 days, the patient has had a cough. Apparently rales were also noted today. Family tells me that today while trying D lunch she seemed to be confused had difficulty doing so. There was no apparent choking or coughing associated with trying to eat. She also is feeling chilled at this afternoon. Today she seemed to be shivering and cold at times as well. Patient 's family says she always has some cough but it seems to be worse than usual. She normally uses nebulizer once or twice a day. In addition the patient had potassium of 2.9 and was sent to the ED due to that. The emergency department, the patient is noted at white count of 14,000, febrile to 100.7, was mildly tachycardic with a pulse of 103. Chest radiograph shows left upper lobe infiltrate, though the right lower lobe also appears to have some infiltrate versus atelectasis. She is being admitted the hospital for sepsis from pneumonia. 12/29 Patient will awake and alert today. Was able to eat some of her meals. Still fairly weak and frail, difficult to get a reliable review of systems due to dementia and her being hard of hearing. - Constitutional Vitals: Vital Signs Temp Pulse Resp BP Pulse Ox 98.7 F 92 H 16 112/52 97 12/29/17 15:39 12/29/17 14:45 12/29/17 15:39 12/29/17 15:39 12/29/17 15:39 Period Temp Pulse Resp BP Sys/Delgado Pulse Ox Last 24 Hr 97.7 F-100.7 F 39-111 16-30 92-119/50-80 91-99 Intake and Output 12/29/17 12/29/17 12/29/17 05:59 13:59 21:59 Intake Total 100 / 100 1739 / 1739 Output Total 1000 / 1000 725 / 725 Balance -900 / -900 1739 / 1739 -725 / -725 General: In no acute distress Chest: Left-sided rales, a few right basilar rales, respirations unlabored Cardiovascular: Irregularly irregular, no peripheral edema Abdomen: Soft, nontender Extremities: Warm, perfused, no cyanosis. Wound on lateral calf dressed. Intake & Output: Intake & Output 12/29/17 12/29/17 12/29/17 05:59 13:59 21:59 Intake Total 100 / 100 1739 / 1739 Output Total 1000 / 1000 725 / 725 Balance -900 / -900 1739 / 1739 -725 / -725 Intake: IV 1499 / 1499 Lactated Ringers 1,000 ml @ 75 979 / 979 mls/hr IV .[id number] [facility] Rx#: [id number] Potassium Chloride 40 Meq In 520 / 520 Dextrose 5% in Water 500 ml @ 130 mls/hr IV ONCE ONE Rx#: [id number] Oral 100 / 100 240 / 240 Output: Urine Catheter Amount 1000 / 1000 725 / 725 Other: Meal Breakfast Percent of Meal Consumed 25% Feeding Ability Assist with [employer] [facility] - PN: Obj Da - Labs CBC & Chem 7: 12/29/17 03:35 12/29/17 03:35 Labs: Abnormal Lab Results 12/29/17 12/29/17 12/29/17 03:35 03:35 03:35 WBC RBC 3.91 L Hgb 11.6 L Hct 35.0 L RDW 15.7 H MPV 10.5 H Gran % Lymph % (Auto) 14.[address] [facility] % (Auto) 13.3 H Gran # Lymph # (Auto) [facility] # (Auto) 1.4 H PT 32.0 H INR 3.1 H Sodium Potassium 2.6 L* Chloride 91 L Carbon Dioxide 33 H BUN 45 H Creatinine 1.4 H Glucose Hemoglobin A1c AST NT-Pro-B Natriuret Pep Globulin Albumin/Globulin Ratio Urine WBC Ur Squamous Epith Cells 12/28/17 12/28/17 12/28/17 14:49 14:07 14:07 WBC RBC Hgb Hct RDW MPV Gran % Lymph % (Auto) [facility] % (Auto) Gran # Lymph # (Auto) [facility] # (Auto) PT 31.6 H INR 3.0 H Sodium Potassium Chloride Carbon Dioxide BUN Creatinine Glucose Hemoglobin A1c 6.3 H AST NT-Pro-B Natriuret Pep Globulin Albumin/Globulin Ratio Urine WBC 7 H Ur Squamous Epith Cells 7 H 12/28/17 12/28/17 14:07 14:07 WBC 14.6 H RBC Hgb Hct RDW 15.2 H MPV Gran % 81.4 H Lymph % (Auto) 7.[address] [facility] % (Auto) Gran # 11.9 H Lymph # (Auto) 1.[address] [facility] # (Auto) 1.4 H PT INR Sodium 132 L Potassium 3.0 L Chloride 87 L Carbon Dioxide 31 H BUN 53 H Creatinine 1.6 H Glucose 232 H Hemoglobin A1c AST 39 H NT-Pro-B Natriuret Pep 4727.0 H Globulin 3.8 H Albumin/Globulin Ratio 0.9 L Urine WBC Ur Squamous Epith Cells Meds: Medications Acetaminophen (Tylenol) 650 mg PO Q6HP PRN PRN Reason: PAIN/FEVER > 101 Albuterol/Ipratropium (Duoneb) 3 ml NEB Q6HRT [facility] Last Admin: 12/29/17 14:45 Dose: 3 ml Dextrose (Dextrose 50%) 0 ml IV UD PRN PRN Reason: Hypoglycemia Diagnostic Test (Pha) (Accu-Chek) 1 each FS [facility] Last Admin: 12/29/17 11:49 Dose: 1 each Diltiazem HCl (Cardizem Cd) 180 mg PO DAILY [facility] Last Admin: 12/29/17 11:44 Dose: 180 mg Glucose (Insta-Glucose) 15 gm PO PRN PRN PRN Reason: Hypoglycemia Lactated Ringer's (Lactated Ringers) 1,000 mls @ 75 mls/hr IV .[id number] [facility] Last Admin: 12/29/17 07:51 Dose: 75 mls/hr Levofloxacin (Levaquin) 750 mg in 150 mls @ 100 mls/hr IV Q48H [facility] Insulin Glargine (Lantus) 10 unit SQ [facility] Insulin Human Lispro (Humalog) 0 unit SQ [facility] PRN Reason: Protocol Last Admin: 12/29/17 12:01 Dose: 2 unit Loratadine (Claritin) 10 mg PO DAILY [facility] Metoprolol Tartrate (Lopressor) 25 mg PO BID [facility] Last Admin: 12/29/17 11:44 Dose: 25 mg Montelukast Sodium (Singular) 10 mg PO DAILY [facility] Ondansetron HCl (Zofran) 4 mg IV Q4HP PRN PRN Reason: Nausea And Vomiting Paroxetine HCl (Paxil) 20 mg PO DAILY [facility] Potassium Chloride (Klor-Con) 40 meq PO DAILYP PRN PRN Reason: Hyperkalemia [facility]assium [facility] Sodium Chloride (Saline Flush) 10 ml IV Q8 [facility] Last Admin: 12/29/17 07:19 Dose: 10 ml Warfarin Sodium (Coumadin Per Pharmacy) 1 order PO UD [facility] - Impressions Echocardiogram report from 12/20/2017 obtained at [facility] in [place]: Normal size left ventricle with mild concentric left ventricular hypertrophy. Ejection fraction 50-55% without regional wall motion abnormalities. Right ventricle is normal in size and function The left atrium is severely dilated, severe mitral regurgitation, moderate to severe tricuspid regurgitation. Moderate to severe pulmonary hypertension Mild aortic stenosis Compared to 02/13/2008, mitral and tricuspid regurgitation have worsened and urinary hypertensions become moderate to severe. Medical - PN: A/P - Time Spent With Patient Total time spent is greater than 50% in coordination of care (as documented) at patient's floor/unit and/or counseling patient: Greater than 35 minutes (1) Sepsis Status: Acute Current Visit: Yes (2) CAP (community acquired pneumonia) Status: Acute Current Visit: Yes (3) CKD (chronic kidney disease) stage 3, GFR 30-59 ml/min Status: Acute Current Visit: Yes (4) Atrial fibrillation Status: Acute Current Visit: Yes (5) Type 2 diabetes mellitus without complications Status: Acute Current Visit: Yes (6) Chronic diastolic congestive heart failure Status: Acute Current Visit: Yes - Narrative A/P Narrative: 87-year-old female presenting with decreased functional capacity, 3 days of cough, subjective chills, found to have tachycardia, fever, leukocytosis and infiltrate consistent with sepsis from pneumonia. Sepsis. Source appears to be the lungs. Not severe sepsis. Improving. Plan: Continue antibiotics, follow up cultures, hydrate Pneumonia. Continues to have have left rales; better on right. Plan: Continue levofloxacin, renally dose 750 mg every 48 hours. Chronic kidney disease stage III. Recent acute kidney injury with creatinine up to 2.6, down to 1.4 discharged from [place]. Creatinine 1.6, trending down today to 1.4. Plan: Avoid nephrotoxins, renally dose meds, hydrate gently, follow creatinine. Chronic diastolic congestive heart failure. This is listed as a diagnosis, apparently was volume overloaded at [facility] earlier this month. Echocardiogram done 12/20/17 with preserved EF, severe MR, mod-sever TR and mod- severe pulmonary hypertension. Does not appear to be volume overloaded currently. Plan: Monitor, hold diuretics for now with sepsis. Type 2 diabetes mellitus, previously on metformin. Metformin stopped, secondary to renal function earlier this month. Plan: Continue home Lantus, and sliding scale insulin, check hemoglobin A1c. Dementia. Patient at risk for delirium Plan: Reorientation, supportive care. Atrial fibrillation. Currently rate controlled by the time I see her after she is received some fluids. Plan: Telemetry monitoring, continuing home regimen, including pharmacy dosing of warfarin. Hypokalemia: replete.
[2017-12-29] MEDS ORDERED: POTASSIUM CHLORIDE 20 MEQ PACKET PO ONE (17:40)
[2017-12-29] MEDS: INSULIN GLARGINE, HUMAN 1 UNIT/0.01 ML SQ SCH (22:09)
[2017-12-30 05:13] LABS: Basophils # (Auto) 0 K/mcL (0.0-0.3); Basophils % (Auto) 0.3 % (0.0-2.0); Eosinophils # (Auto) 0.3 K/mcL (0.0-0.7); Granulocytes % (Auto) 66.4 % (38.0-78.0); Lymphocytes # (Auto) 1.5 K/mcL (1.5-4.8); Lymphocytes % (Auto) 14.2 % (15.5-49.0); Mean Cell Volume 89.3 fL (80.0-100.0); Mean Corpuscular HGB Conc 33.3 g/dL (31.0-36.0); Mean Corpuscular Hemoglobin 29.7 pg (26.0-34.0); Monocytes # (Auto) 1.7 K/mcL (0.1-0.9); Monocytes % (Auto) 16.1 % (1.0-12.0); Platelet Count 267 K/mcL (140-440); RBC 3.69 M/mcL (4.00-5.20); Red Cell Distribution Width 15.4 % (11.5-14.5)
[2017-12-30 05:36] LABS: Blood Urea Nitrogen 40 mg/dl (8-23)
[2017-12-30] MEDS: 0.9 % SODIUM CHLORIDE 10 ML SYRINGE IV SCH ×3 (06:32→21:37)
[2017-12-30] MEDS: IPRATROPIUM/ALBUTEROL 3 ML AMPUL.NEB NEB SCH ×3 (07:00→19:51)
[2017-12-30] MEDS: INSULIN LISPRO 1 UNIT/0.01 ML UNIT SQ SCH ×4 (08:05→21:36)
[2017-12-30] MEDS: DILTIAZEM 180 MG CAP.XL.24H PO SCH (08:38)
[2017-12-30] MEDS: METOPROLOL TARTRATE 25 MG TABLET PO SCH ×2 (08:38→21:36)
[2017-12-30] MEDS: POTASSIUM CHLORIDE 20 MEQ TABLET PO SCH (08:38)
[2017-12-30] MEDS: LEVOFLOXACIN 750 MG/150 ML BAG IV SCH (08:38)
[2017-12-30] MEDS: MONTELUKAST 10 MG TABLET PO SCH (08:38)
[2017-12-30] MEDS: PARoxetine 20 MG TABLET PO SCH (08:41)
[2017-12-30] MEDS: LORATADINE 10 MG TABLET PO SCH (08:41)
[2017-12-30] MEDS ORDERED: SPIRONOLACTONE 25 MG TABLET PO ONE (09:54)
[2017-12-30] MEDS: LACTATED RINGERS 1,000 ML IV SCH (10:02)
[2017-12-30] MEDS ORDERED: WARFARIN 3 MG TABLET PO ONE (14:00)
--- NOTE | 2017-12-30 17:09 | Internal Med Progress Note ---
Medical - PN: Subj Patient information: Note initiated : 12/30/17 at 5:05 pm Service Date, if different from initiated Date: [] Patient: Pratibha Palacio 87 y/o F admitted on 12/28/17 for low potassium. Chief Complaint: f/u PNA Interval history: 12/28 The patient is an 7-year-old female with a history of atrial fibrillation, dementia, chronic kidney disease stage III, congestive heart failure, type 2 diabetes presents from her living facility with confusion, chills and 3 days of cough. History is obtained speaking to the patient's family, speaking with Dr. Reid from the ED and in reviewing records. Patient is unable to give history due to dementia and hard of hearing. For about the last 3 days, the patient has had a cough. Apparently rales were also noted today. Family tells me that today while trying D lunch she seemed to be confused had difficulty doing so. There was no apparent choking or coughing associated with trying to eat. She also is feeling chilled at this afternoon. Today she seemed to be shivering and cold at times as well. Patient 's family says she always has some cough but it seems to be worse than usual. She normally uses nebulizer once or twice a day. In addition the patient had potassium of 2.9 and was sent to the ED due to that. The emergency department, the patient is noted at white count of 14,000, febrile to 100.7, was mildly tachycardic with a pulse of 103. Chest radiograph shows left upper lobe infiltrate, though the right lower lobe also appears to have some infiltrate versus atelectasis. She is being admitted the hospital for sepsis from pneumonia. 12/29 Patient will awake and alert today. Was able to eat some of her meals. Still fairly weak and frail, difficult to get a reliable review of systems due to dementia and her being hard of hearing. 12/30 Patient was able to get today and will decide a bed today, however didn't want to get up and try to stand with PT. Prefers just to lay in bed. Had low-grade fever to 99 range this afternoon. Discussed with one of her daughters, given her advanced age and her frailty, she may not recover from pneumonia, wanted to prepare them for that eventuality. She says "fine" when I ask how she is. - Constitutional Vitals: Vital Signs Temp Pulse Resp BP Pulse Ox 99.4 F H 92 H 18 102/64 93 12/30/17 15:22 12/30/17 13:15 12/30/17 15:22 12/30/17 15:22 12/30/17 15:22 Period Temp Pulse Resp BP Sys/Delgado Pulse Ox Last 24 Hr 98.2 F-100.1 F 71-92 16-22 102-124/57-84 92-97 Intake and Output 12/30/17 12/30/17 12/30/17 05:59 13:59 21:59 Intake Total 480 / 480 1610 / 1610 Output Total 500 / 500 750 / 750 Balance -20 -20 1610 / 1610 -750 / -750 Weight 124 lb 5.451 oz Patient Weight 12/31/17 05:59 Weight 124 lb 5.451 oz General: Elderly, frail-appearing Chest: Left-sided lower and mid rales, not as noticeable, a few right basilar rales. Cardiovascular: Irregular Abdomen: Soft, appears uncomfortable with palpation, but not true tenderness, no guarding or rebound, active bowel sounds Neuro: Very hard of hearing, answers and few word replies. Intake & Output: Intake & Output 12/30/17 12/30/17 12/30/17 05:59 13:59 21:59 Intake Total 480 / 480 1610 / 1610 Output Total 500 / 500 750 / 750 Balance -20 -20 1610 / 1610 -750 / -750 Weight 124 lb 5.451 oz Intake: IV 1090 / 1090 Lactated Ringers 1,000 ml @ 75 940 / 940 mls/hr IV .[id number] ALEM Rx#: [id number] Oral 480 / 480 520 / 520 Output: Urine Catheter Amount 500 / 500 750 / 750 Other: Meal Lunch Percent of Meal Consumed 0% Feeding Ability Assist with Tray Set Up Stool Size Moderate Smear Stool Color Brown Brown Stool Consistency Loose Soft # Bowel Movements 1 # of times incontinent of 1 1 Bowels Medical - PN: Obj Da - Labs CBC & Chem 7: 12/30/17 03:55 12/30/17 03:55 Labs: Abnormal Lab Results 12/30/17 12/30/17 12/30/17 03:55 03:55 03:55 WBC RBC 3.69 L Hgb 11.0 L Hct 33.0 L RDW 15.4 H MPV Gran % Lymph % (Auto) 14.2 L [place] % (Auto) 16.1 H Gran # Lymph # (Auto) [place] # (Auto) 1.7 H PT 23.1 H INR 2.0 H Sodium Potassium 3.0 L Chloride 92 L Carbon Dioxide 31 H BUN 40 H Creatinine 1.2 H Glucose Hemoglobin A1c AST NT-Pro-B Natriuret Pep Globulin Albumin/Globulin Ratio Urine WBC Ur Squamous Epith Cells 12/29/17 12/29/17 12/29/17 03:35 03:35 03:35 WBC RBC 3.91 L Hgb 11.6 L Hct 35.0 L RDW 15.7 H MPV 10.5 H Gran % Lymph % (Auto) 14.3 L [place] % (Auto) 13.3 H Gran # Lymph # (Auto) [place] # (Auto) 1.4 H PT 32.0 H INR 3.1 H Sodium Potassium 2.6 L* Chloride 91 L Carbon Dioxide 33 H BUN 45 H Creatinine 1.4 H Glucose Hemoglobin A1c AST NT-Pro-B Natriuret Pep Globulin Albumin/Globulin Ratio Urine WBC Ur Squamous Epith Cells 12/28/17 12/28/17 12/28/17 14:49 14:07 14:07 WBC RBC Hgb Hct RDW MPV Gran % Lymph % (Auto) [place] % (Auto) Gran # Lymph # (Auto) [place] # (Auto) PT 31.6 H INR 3.0 H Sodium Potassium Chloride Carbon Dioxide BUN Creatinine Glucose Hemoglobin A1c 6.3 H AST NT-Pro-B Natriuret Pep Globulin Albumin/Globulin Ratio Urine WBC 7 H Ur Squamous Epith Cells 7 H 12/28/17 12/28/17 14:07 14:07 WBC 14.6 H RBC Hgb Hct RDW 15.2 H MPV Gran % 81.4 H Lymph % (Auto) 7.0 L [place] % (Auto) Gran # 11.9 H Lymph # (Auto) 1.0 L [place] # (Auto) 1.4 H PT INR Sodium 132 L Potassium 3.0 L Chloride 87 L Carbon Dioxide 31 H BUN 53 H Creatinine 1.6 H Glucose 232 H Hemoglobin A1c AST 39 H NT-Pro-B Natriuret Pep 4727.0 H Globulin 3.8 H Albumin/Globulin Ratio 0.9 L Urine WBC Ur Squamous Epith Cells Meds: Medications Acetaminophen (Tylenol) 650 mg PO Q6HP PRN PRN Reason: PAIN/FEVER > 101 Last Admin: 12/30/17 12:44 Dose: 650 mg Albuterol/Ipratropium (Duoneb) 3 ml NEB Q6HRT [facility] Last Admin: 12/30/17 13:15 Dose: 3 ml Dextrose (Dextrose 50%) 0 ml IV UD PRN PRN Reason: Hypoglycemia Diagnostic Test (Pha) (Accu-Chek) 1 each FS ACHS [facility] Last Admin: 12/30/17 12:20 Dose: 1 each Diltiazem HCl (Cardizem Cd) 180 mg PO DAILY [facility] Last Admin: 12/30/17 08:38 Dose: 180 mg Glucose (Insta-Glucose) 15 gm PO PRN PRN PRN Reason: Hypoglycemia Levofloxacin (Levaquin) 750 mg in 150 mls @ 100 mls/hr IV Q48H [facility] Last Infusion: 12/30/17 10:08 Dose: Infused Insulin Glargine (Lantus) 10 unit SQ HS [facility] Last Admin: 12/29/17 22:09 Dose: 10 unit Insulin Human Lispro (Humalog) 0 unit SQ [facility] PRN Reason: Protocol Last Admin: 12/30/17 12:40 Dose: Not Given Loratadine (Claritin) 10 mg PO DAILY [facility] Last Admin: 12/30/17 08:41 Dose: 10 mg Metoprolol Tartrate (Lopressor) 25 mg PO BID [facility] Last Admin: 12/30/17 08:38 Dose: 25 mg Montelukast Sodium (Singular) 10 mg PO DAILY [facility] Last Admin: 12/30/17 08:38 Dose: 10 mg Ondansetron HCl (Zofran) 4 mg IV Q4HP PRN PRN Reason: Nausea And Vomiting Paroxetine HCl (Paxil) 20 mg PO DAILY [facility] Last Admin: 12/30/17 08:41 Dose: 20 mg Potassium Chloride (Klor-Con) 40 meq PO DAILYP PRN PRN Reason: Hyperkalemia Last Admin: 12/30/17 12:38 Dose: 40 meq Potassium Chloride (Kdur) 20 meq PO QAMCC [facility] Last Admin: 12/30/17 08:38 Dose: 20 meq Sodium Chloride (Saline Flush) 10 ml IV Q8 [facility] Last Admin: 12/30/17 14:45 Dose: 10 ml Spironolactone (Aldactone) 25 mg PO DAILY [facility] Warfarin Sodium (Coumadin Per Pharmacy) 1 order PO UD [facility] Medical - PN: A/P - Time Spent With Patient Total time spent is greater than 50% in coordination of care (as documented) at patient's floor/unit and/or counseling patient: Greater than 35 minutes (1) Sepsis Status: Acute Current Visit: Yes (2) CAP (community acquired pneumonia) Status: Acute Current Visit: Yes (3) CKD (chronic kidney disease) stage 3, GFR 30-59 ml/min Status: Acute Current Visit: Yes (4) Atrial fibrillation Status: Acute Current Visit: Yes (5) Type 2 diabetes mellitus without complications Status: Acute Current Visit: Yes (6) Chronic diastolic congestive heart failure Status: Acute Current Visit: Yes - Narrative A/P Narrative: 87-year-old female presenting with decreased functional capacity, 3 days of cough, subjective chills, found to have tachycardia, fever, leukocytosis and infiltrate consistent with sepsis from pneumonia. Sepsis. Source appears to be the lungs. Improving. Plan: Continue antibiotics, follow up cultures, hydrate Pneumonia. Rales improved from admission. However, remains overall weak and debilitated. Plan: Continue levofloxacin, renally dose 750 mg every 48 hours. Chronic kidney disease stage III. Recent acute kidney injury with creatinine up to 2.6, down to 1.4 discharged from [place]. Creatinine 1.6 at admission and continues to trend down. Today to 1.3. Plan: Avoid nephrotoxins, renally dose meds, follow creatinine. Chronic diastolic congestive heart failure. Echocardiogram done 12/20/17 with preserved EF, severe MR, mod-severe TR and mod-severe pulmonary hypertension. Does not appear to be volume overloaded currently. Plan: Monitor, hold diuretics for now with sepsis. Saline lock Type 2 diabetes mellitus, previously on metformin. Metformin stopped, secondary to renal function earlier this month. Gemoglobin A1c 6.3% Plan: Continue home Lantus, and sliding scale insulin. Dementia. Patient at risk for delirium Plan: Reorientation, supportive care. Atrial fibrillation. Currently rate controlled. Plan: Telemetry monitoring, continuing home regimen, including pharmacy dosing of warfarin. Hypokalemia: persistent. Replete further, add spironolactone to regimen.
[2017-12-30] MEDS: INSULIN GLARGINE, HUMAN 1 UNIT/0.01 ML SQ SCH (21:36)
[2017-12-31] MEDS: IPRATROPIUM/ALBUTEROL 3 ML AMPUL.NEB NEB SCH ×3 (02:27→14:08)
[2017-12-31 05:07] LABS: Basophils # (Auto) 0 K/mcL (0.0-0.3); Basophils % (Auto) 0.3 % (0.0-2.0); Eosinophils # (Auto) 0.2 K/mcL (0.0-0.7); Eosinophils % (Auto) 2.2 % (0.0-7.0); Granulocytes % (Auto) 69.5 % (38.0-78.0); Lymphocytes # (Auto) 1.4 K/mcL (1.5-4.8); Lymphocytes % (Auto) 14.1 % (15.5-49.0); Mean Cell Volume 90.2 fL (80.0-100.0); Mean Corpuscular HGB Conc 32.5 g/dL (31.0-36.0); Mean Corpuscular Hemoglobin 29.3 pg (26.0-34.0); Monocytes # (Auto) 1.3 K/mcL (0.1-0.9); Monocytes % (Auto) 13.9 % (1.0-12.0); Platelet Count 231 K/mcL (140-440); RBC 3.82 M/mcL (4.00-5.20); Red Cell Distribution Width 15.7 % (11.5-14.5)
[2017-12-31 05:18] LABS: Blood Urea Nitrogen 35 mg/dl (8-23)
[2017-12-31] MEDS: 0.9 % SODIUM CHLORIDE 10 ML SYRINGE IV SCH ×3 (06:50→22:00)
[2017-12-31] MEDS ORDERED: POTASSIUM CHLORIDE 20 MEQ PACKET PO ONE (07:32)
[2017-12-31] MEDS: INSULIN LISPRO 1 UNIT/0.01 ML UNIT SQ SCH ×4 (08:11→22:51)
[2017-12-31] MEDS: POTASSIUM CHLORIDE 20 MEQ TABLET PO SCH (09:16)
[2017-12-31] MEDS: LORATADINE 10 MG TABLET PO SCH (09:17)
[2017-12-31] MEDS: DILTIAZEM 180 MG CAP.XL.24H PO SCH (09:17)
[2017-12-31] MEDS: PARoxetine 20 MG TABLET PO SCH (09:17)
[2017-12-31] MEDS: METOPROLOL TARTRATE 25 MG TABLET PO SCH ×2 (09:17→19:51)
[2017-12-31] MEDS: SPIRONOLACTONE 25 MG TABLET PO SCH (09:17)
[2017-12-31] MEDS: MONTELUKAST 10 MG TABLET PO SCH (09:17)
--- NOTE | 2017-12-31 13:10 | Internal Med Progress Note ---
Medical - PN: Subj Patient information: Note initiated : 12/31/17 at 1:07 pm Service Date, if different from initiated Date: [] Patient: Pratibha Palacio 87 y/o F admitted on 12/28/17 for Low Potassium/ Sepsis, Pneumonia. Chief Complaint: f/u PNA Interval history: 12/28 The patient is an 7-year-old female with a history of atrial fibrillation, dementia, chronic kidney disease stage III, congestive heart failure, type 2 diabetes presents from her living facility with confusion, chills and 3 days of cough. History is obtained speaking to the patient's family, speaking with Dr. Reid from the ED and in reviewing records. Patient is unable to give history due to dementia and hard of hearing. For about the last 3 days, the patient has had a cough. Apparently rales were also noted today. Family tells me that today while trying D lunch she seemed to be confused had difficulty doing so. There was no apparent choking or coughing associated with trying to eat. She also is feeling chilled at this afternoon. Today she seemed to be shivering and cold at times as well. Patient 's family says she always has some cough but it seems to be worse than usual. She normally uses nebulizer once or twice a day. In addition the patient had potassium of 2.9 and was sent to the ED due to that. The emergency department, the patient is noted at white count of 14,000, febrile to 100.7, was mildly tachycardic with a pulse of 103. Chest radiograph shows left upper lobe infiltrate, though the right lower lobe also appears to have some infiltrate versus atelectasis. She is being admitted the hospital for sepsis from pneumonia. 12/29 Patient will awake and alert today. Was able to eat some of her meals. Still fairly weak and frail, difficult to get a reliable review of systems due to dementia and her being hard of hearing. 12/30 Patient was able to get today and will decide a bed today, however didn't want to get up and try to stand with PT. Prefers just to lay in bed. Had low-grade fever to 99 range this afternoon. Discussed with one of her daughters, given her advanced age and her frailty, she may not recover from pneumonia, wanted to prepare them for that eventuality. She says "fine" when I ask how she is. 12/31 Sleeping soundly this morning, initially didn't want breakfast, then got up with PT to have breakfast. Spends most of her days in bed sleeping, her family notes that she has been doing that a lot lately. Become a lot less active since moving to [facility] [address]. - Constitutional Vitals: Vital Signs Temp Pulse Resp BP Pulse Ox 97.9 F 80 20 105/67 97 12/31/17 11:57 12/31/17 11:57 12/31/17 11:57 12/31/17 11:57 12/31/17 12:19 Period Temp Pulse Resp BP Sys/Delgado Pulse Ox Last 24 Hr 97.9 F-99.4 F 71-99 16-20 96-112/46-85 91-97 Intake and Output 12/30/17 12/31/17 12/31/17 21:59 05:59 13:59 Intake Total 370 / 370 50 / 50 240 / 240 Output Total 750 / 750 850 / 850 Balance -380 / -380 -800 / -800 240 / 240 Weight 125 lb General: Sleepy, arouses Chest: Shallow but clear respirations Cardiovascular: Regular, no edema Abdomen: Soft, nontender Neural: Hard of hearing, sleeping but arousable. Generally weak. Intake & Output: Intake & Output 12/30/17 12/31/17 12/31/17 21:59 05:59 13:59 Intake Total 370 / 370 50 / 50 240 / 240 Output Total 750 / 750 850 / 850 Balance -380 / -380 -800 / -800 240 / 240 Weight 125 lb Intake: Oral 370 / 370 50 / 50 240 / 240 Output: Urine Catheter Amount 750 / 750 850 / 850 Other: Meal Dinner Breakfast Percent of Meal Consumed 25% 75% Feeding Ability Needs Supervision Medical - PN: Obj Da - Labs CBC & Chem 7: 12/31/17 03:40 12/31/17 03:40 Labs: Abnormal Lab Results 12/31/17 12/31/17 12/31/17 03:40 03:40 03:40 WBC RBC 3.82 L Hgb 11.2 L Hct 34.4 L RDW 15.7 H MPV Gran % Lymph % (Auto) 14.1 L [place] % (Auto) 13.9 H Gran # Lymph # (Auto) 1.4 L [place] # (Auto) 1.3 H PT 19.9 H INR 1.7 H Sodium Potassium Chloride Carbon Dioxide BUN 35 H Creatinine 1.3 H Glucose Hemoglobin A1c AST NT-Pro-B Natriuret Pep Globulin Albumin/Globulin Ratio Urine WBC Ur Squamous Epith Cells 12/30/17 12/30/17 12/30/17 03:55 03:55 03:55 WBC RBC 3.69 L Hgb 11.0 L Hct 33.0 L RDW 15.4 H MPV Gran % Lymph % (Auto) 14.2 L [place] % (Auto) 16.1 H Gran # Lymph # (Auto) [place] # (Auto) 1.7 H PT 23.1 H INR 2.0 H Sodium Potassium 3.0 L Chloride 92 L Carbon Dioxide 31 H BUN 40 H Creatinine 1.2 H Glucose Hemoglobin A1c AST NT-Pro-B Natriuret Pep Globulin Albumin/Globulin Ratio Urine WBC Ur Squamous Epith Cells 12/29/17 12/29/17 12/29/17 03:35 03:35 03:35 WBC RBC 3.91 L Hgb 11.6 L Hct 35.0 L RDW 15.7 H MPV 10.5 H Gran % Lymph % (Auto) 14.3 L [place] % (Auto) 13.3 H Gran # Lymph # (Auto) [place] # (Auto) 1.4 H PT 32.0 H INR 3.1 H Sodium Potassium 2.6 L* Chloride 91 L Carbon Dioxide 33 H BUN 45 H Creatinine 1.4 H Glucose Hemoglobin A1c AST NT-Pro-B Natriuret Pep Globulin Albumin/Globulin Ratio Urine WBC Ur Squamous Epith Cells 12/28/17 12/28/17 12/28/17 14:49 14:07 14:07 WBC RBC Hgb Hct RDW MPV Gran % Lymph % (Auto) [place] % (Auto) Gran # Lymph # (Auto) [place] # (Auto) PT 31.6 H INR 3.0 H Sodium Potassium Chloride Carbon Dioxide BUN Creatinine Glucose Hemoglobin A1c 6.3 H AST NT-Pro-B Natriuret Pep Globulin Albumin/Globulin Ratio Urine WBC 7 H Ur Squamous Epith Cells 7 H 12/28/17 12/28/17 14:07 14:07 WBC 14.6 H RBC Hgb Hct RDW 15.2 H MPV Gran % 81.4 H Lymph % (Auto) 7.0 L [place] % (Auto) Gran # 11.9 H Lymph # (Auto) 1.0 L [place] # (Auto) 1.4 H PT INR Sodium 132 L Potassium 3.0 L Chloride 87 L Carbon Dioxide 31 H BUN 53 H Creatinine 1.6 H Glucose 232 H Hemoglobin A1c AST 39 H NT-Pro-B Natriuret Pep 4727.0 H Globulin 3.8 H Albumin/Globulin Ratio 0.9 L Urine WBC Ur Squamous Epith Cells Microbiology 12/28/17 14:07 Blood Culture - Preliminary Blood 12/28/17 14:15 Blood Culture - Preliminary Blood Meds: Medications Acetaminophen (Tylenol) 650 mg PO Q6HP PRN PRN Reason: PAIN/FEVER > 101 Last Admin: 12/30/17 12:44 Dose: 650 mg Albuterol/Ipratropium (Duoneb) 3 ml NEB Q6HRT [facility] Last Admin: 12/31/17 07:53 Dose: 3 ml Dextrose (Dextrose 50%) 0 ml IV UD PRN PRN Reason: Hypoglycemia Diagnostic Test (Pha) (Accu-Chek) 1 each FS [facility] Last Admin: 12/31/17 11:50 Dose: 1 each Diltiazem HCl (Cardizem Cd) 180 mg PO DAILY [facility] Last Admin: 12/31/17 09:17 Dose: 180 mg Glucose (Insta-Glucose) 15 gm PO PRN PRN PRN Reason: Hypoglycemia Levofloxacin (Levaquin) 750 mg in 150 mls @ 100 mls/hr IV Q48H [facility] Last Infusion: 12/30/17 10:08 Dose: Infused Insulin Glargine (Lantus) 10 unit SQ [facility] Last Admin: 12/30/17 21:36 Dose: 10 unit Insulin Human Lispro (Humalog) 0 unit SQ [facility] PRN Reason: Protocol Last Admin: 12/31/17 12:13 Dose: 1 unit Loratadine (Claritin) 10 mg PO DAILY [facility] Last Admin: 12/31/17 09:17 Dose: 10 mg Metoprolol Tartrate (Lopressor) 25 mg PO BID [facility] Last Admin: 12/31/17 09:17 Dose: 25 mg Montelukast Sodium (Singular) 10 mg PO DAILY [facility] Last Admin: 12/31/17 09:17 Dose: 10 mg Ondansetron HCl (Zofran) 4 mg IV Q4HP PRN PRN Reason: Nausea And Vomiting Paroxetine HCl (Paxil) 20 mg PO DAILY [facility] Last Admin: 12/31/17 09:17 Dose: 20 mg Potassium Chloride (Klor-Con) 40 meq PO DAILYP PRN PRN Reason: Hyperkalemia Last Admin: 12/30/17 12:38 Dose: 40 meq Potassium [facility] Last Admin: 12/31/17 09:16 Dose: 20 meq Sodium Chloride (Saline Flush) 10 ml IV Q8 [facility] Last Admin: 12/31/17 06:50 Dose: 10 ml Spironolactone (Aldactone) 25 mg PO DAILY [facility] Last Admin: 12/31/17 09:17 Dose: 25 mg Warfarin Sodium (Coumadin Per Pharmacy) 1 order PO UD [facility] Medical - PN: A/P - Time Spent With Patient Total time spent is greater than 50% in coordination of care (as documented) at patient's floor/unit and/or counseling patient: (1) Sepsis Status: Acute Current Visit: Yes (2) CAP (community acquired pneumonia) Status: Acute Current Visit: Yes (3) CKD (chronic kidney disease) stage 3, GFR 30-59 ml/min Status: Acute Current Visit: Yes (4) Atrial fibrillation Status: Acute Current Visit: Yes (5) Type 2 diabetes mellitus without complications Status: Acute Current Visit: Yes (6) Chronic diastolic congestive heart failure Status: Acute Current Visit: Yes - Narrative A/P Narrative: 87-year-old female presenting with decreased functional capacity, 3 days of cough, subjective chills, found to have tachycardia, fever, leukocytosis and infiltrate consistent with sepsis from pneumonia. Sepsis. Source appears to be the lungs. Improving/resolved. Plan: Continue antibiotics, follow up cultures, hydrate Pneumonia. Rales improved from admission. Remains overall weak and debilitated. This may represent her baseline at this point. Plan: Continue levofloxacin, renally dose 750 mg every 48 hours. Chronic kidney disease stage III. Recent acute kidney injury with creatinine up to 2.6, down to 1.4 discharged from [place]. Creatinine 1.6 at admission and continues to trend down. Plan: Avoid nephrotoxins, renally dose meds, follow creatinine. Chronic diastolic congestive heart failure. Echocardiogram done 12/20/17 with preserved EF, severe MR, mod-severe TR and mod-severe pulmonary hypertension. Does not appear to be volume overloaded currently. Plan: Monitor, holding diuretics for now with sepsis. Saline locked. Type 2 diabetes mellitus, previously on metformin. Metformin stopped, secondary to renal function earlier this month. Gemoglobin A1c 6.3% Plan: Continue home Lantus, and sliding scale insulin. Dementia. Patient at risk for delirium Plan: Reorientation, supportive care. Atrial fibrillation. Currently rate controlled. Plan: Telemetry monitoring, continuing home regimen, including pharmacy dosing of warfarin. Hypokalemia: persistent, but improved on Sunday. Replete further, add spironolactone to regimen. Disposition: Patient may be approaching baseline. Likely can be converted to oral antibiotics and discharged back to long-term care in 1-2 days.
[2017-12-31] MEDS ORDERED: WARFARIN 3 MG TABLET PO ONE (14:00)
[2017-12-31] MEDS ORDERED: ALBUTEROL SULFATE 2.5 MG/3 ML NEBULIZER NEB PRN (16:35)
[2017-12-31] MEDS: INSULIN GLARGINE, HUMAN 1 UNIT/0.01 ML SQ SCH (22:52)
[2018-01-01 05:06] LABS: Basophils # (Auto) 0 K/mcL (0.0-0.3); Basophils % (Auto) 0.3 % (0.0-2.0); Eosinophils # (Auto) 0.4 K/mcL (0.0-0.7); Eosinophils % (Auto) 3.6 % (0.0-7.0); Granulocytes % (Auto) 68.5 % (38.0-78.0); Lymphocytes # (Auto) 1.5 K/mcL (1.5-4.8); Lymphocytes % (Auto) 15.4 % (15.5-49.0); Mean Cell Volume 89.1 fL (80.0-100.0); Mean Corpuscular HGB Conc 33.1 g/dL (31.0-36.0); Mean Corpuscular Hemoglobin 29.5 pg (26.0-34.0); Monocytes # (Auto) 1.2 K/mcL (0.1-0.9); Monocytes % (Auto) 12.2 % (1.0-12.0); Platelet Count 272 K/mcL (140-440); RBC 3.72 M/mcL (4.00-5.20); Red Cell Distribution Width 15.5 % (11.5-14.5)
[2018-01-01 05:12] LABS: Blood Urea Nitrogen 35 mg/dl (8-23)
[2018-01-01] MEDS: 0.9 % SODIUM CHLORIDE 10 ML SYRINGE IV SCH ×3 (05:48→22:00)
[2018-01-01] MEDS: INSULIN LISPRO 1 UNIT/0.01 ML UNIT SQ SCH ×4 (07:20→21:25)
[2018-01-01] MEDS: POTASSIUM CHLORIDE 20 MEQ TABLET PO SCH (08:11)
[2018-01-01] MEDS: SPIRONOLACTONE 25 MG TABLET PO SCH (08:12)
[2018-01-01] MEDS: LORATADINE 10 MG TABLET PO SCH (08:12)
[2018-01-01] MEDS: MONTELUKAST 10 MG TABLET PO SCH (08:12)
[2018-01-01] MEDS: DILTIAZEM 180 MG CAP.XL.24H PO SCH (08:12)
[2018-01-01] MEDS: METOPROLOL TARTRATE 25 MG TABLET PO SCH ×2 (08:13→21:25)
[2018-01-01] MEDS: PARoxetine 20 MG TABLET PO SCH (08:13)
[2018-01-01] MEDS: LEVOFLOXACIN 750 MG/150 ML BAG IV SCH (09:15)
--- NOTE | 2018-01-01 09:56 | Internal Med Progress Note ---
Medical - PN: Subj Patient information: Note initiated : 01/01/18 at 9:54 am Service Date, if different from initiated Date: [] Patient: Pratibha Palacio 87 y/o F admitted on 12/28/17 for Low Potassium/ Sepsis, Pneumonia. Chief Complaint: [] Interval history: 12/28 The patient is an 7-year-old female with a history of atrial fibrillation, dementia, chronic kidney disease stage III, congestive heart failure, type 2 diabetes presents from her living facility with confusion, chills and 3 days of cough. History is obtained speaking to the patient's family, speaking with Dr. Reid from the ED and in reviewing records. Patient is unable to give history due to dementia and hard of hearing. For about the last 3 days, the patient has had a cough. Apparently rales were also noted today. Family tells me that today while trying D lunch she seemed to be confused had difficulty doing so. There was no apparent choking or coughing associated with trying to eat. She also is feeling chilled at this afternoon. Today she seemed to be shivering and cold at times as well. Patient 's family says she always has some cough but it seems to be worse than usual. She normally uses nebulizer once or twice a day. In addition the patient had potassium of 2.9 and was sent to the ED due to that. The emergency department, the patient is noted at white count of 14,000, febrile to 100.7, was mildly tachycardic with a pulse of 103. Chest radiograph shows left upper lobe infiltrate, though the right lower lobe also appears to have some infiltrate versus atelectasis. She is being admitted the hospital for sepsis from pneumonia. 12/29 Patient will awake and alert today. Was able to eat some of her meals. Still fairly weak and frail, difficult to get a reliable review of systems due to dementia and her being hard of hearing. 12/30 Patient was able to get today and will decide a bed today, however didn't want to get up and try to stand with PT. Prefers just to lay in bed. Had low-grade fever to 99 range this afternoon. Discussed with one of her daughters, given her advanced age and her frailty, she may not recover from pneumonia, wanted to prepare them for that eventuality. She says "fine" when I ask how she is. 12/31 Sleeping soundly this morning, initially didn't want breakfast, then got up with PT to have breakfast. Spends most of her days in bed sleeping, her family notes that she has been doing that a lot lately. Become a lot less active since moving to [facility]. 01/01-patient doing remarkably better. Sitting on chair eating breakfast. No overnight events or concerns per staff. No telemetry events except for baseline A. fib rate controlled. According diet physical therapy. Anticipate transfer to SNF in 24 hours. Transfer to medical floor today. T-Max 99. White count 10,000. INR 1.8. Continue Coumadin dosing based on INR - Constitutional Vitals: Vital Signs Temp Pulse Resp BP Pulse Ox 98.9 F 75 28 H 121/54 93 01/01/18 04:00 01/01/18 07:40 01/01/18 07:40 01/01/18 07:40 01/01/18 07:40 Period Temp Pulse Resp BP Sys/Delgado Pulse Ox Last 24 Hr 97.9 F-98.9 F 74-85 16-28 104-121/54-78 92-97 Intake and Output 12/31/17 01/01/18 01/01/18 21:59 05:59 13:59 Intake Total 520 / 520 100 / 100 Output Total 425 / 425 450 / 450 Balance 95 / 95 -350 / -350 Weight 125 lb 3.2 oz Intake & Output: Intake & Output 12/31/17 01/01/18 01/01/18 21:59 05:59 13:59 Intake Total 520 / 520 100 / 100 Output Total 425 / 425 450 / 450 Balance 95 / 95 -350 / -350 Weight 125 lb 3.2 oz Intake: Oral 520 / 520 100 / 100 Output: Urine Catheter Amount 425 / 425 450 / 450 Other: Meal Breakfast Percent of Meal Consumed 100% Feeding Ability Assist with Tray Set Up Stool Size Small Small Stool Color Brown Brown Stool Consistency Loose Loose # of times incontinent of 1 1 Bowels General appearance: no acute distress Exam: alert sitting on chair eating breakfast nonlabored breathing No anxiety No lymphedema telemetry A. fib Medical - PN: Obj Da - Labs CBC & Chem 7: 01/01/18 03:30 01/01/18 03:30 Labs: Abnormal Lab Results 01/01/18 01/01/18 01/01/18 03:30 03:30 03:30 RBC 3.72 L Hgb 11.0 L Hct 33.2 L RDW 15.5 H Lymph % (Auto) 15.4 L [place] % (Auto) 12.2 H Lymph # (Auto) [place] # (Auto) 1.2 H PT 21.4 H INR 1.8 H Potassium Chloride Carbon Dioxide BUN 35 H Creatinine 1.2 H 12/31/17 12/31/17 12/31/17 03:40 03:40 03:40 RBC 3.82 L Hgb 11.2 L Hct 34.4 L RDW 15.7 H Lymph % (Auto) 14.1 L [place] % (Auto) 13.9 H Lymph # (Auto) 1.4 L [place] # (Auto) 1.3 H PT 19.9 H INR 1.7 H Potassium Chloride Carbon Dioxide BUN 35 H Creatinine 1.3 H 12/30/17 12/30/17 12/30/17 03:55 03:55 03:55 RBC 3.69 L Hgb 11.0 L Hct 33.0 L RDW 15.4 H Lymph % (Auto) 14.2 L [place] % (Auto) 16.1 H Lymph # (Auto) [place] # (Auto) 1.7 H PT 23.1 H INR 2.0 H Potassium 3.0 L Chloride 92 L Carbon Dioxide 31 H BUN 40 H Creatinine 1.2 H Meds: Medications Acetaminophen (Tylenol) 650 mg PO Q6HP PRN PRN Reason: PAIN/FEVER > 101 Last Admin: 12/30/17 12:44 Dose: 650 mg Albuterol Sulfate (Ventolin) 2.5 mg NEB Q2HP PRN PRN Reason: Shortness Of Breath Dextrose (Dextrose 50%) 0 ml IV UD PRN PRN Reason: Hypoglycemia Diagnostic Test (Pha) (Accu-Chek) 1 each FS ACHS [facility] Last Admin: 01/01/18 07:19 Dose: 1 each Diltiazem HCl (Cardizem Cd) 180 mg PO DAILY [facility] Last Admin: 01/01/18 08:12 Dose: 180 mg Glucose (Insta-Glucose) 15 gm PO PRN PRN PRN Reason: Hypoglycemia Levofloxacin (Levaquin) 750 mg in 150 mls @ 100 mls/hr IV Q48H [facility] Last Admin: 01/01/18 09:15 Dose: 100 mls/hr Insulin Glargine (Lantus) 10 unit SQ HS [facility] Last Admin: 12/31/17 22:52 Dose: Not Given Insulin Human Lispro (Humalog) 0 unit SQ ACHS [facility] PRN Reason: Protocol Last Admin: 01/01/18 07:20 Dose: Not Given Loratadine (Claritin) 10 mg PO DAILY [facility] Last Admin: 01/01/18 08:12 Dose: 10 mg Metoprolol Tartrate (Lopressor) 25 mg PO BID [facility] Last Admin: 01/01/18 08:13 Dose: 25 mg Montelukast Sodium (Singular) 10 mg PO DAILY [facility] Last Admin: 01/01/18 08:12 Dose: 10 mg Ondansetron HCl (Zofran) 4 mg IV Q4HP PRN PRN Reason: Nausea And Vomiting Paroxetine HCl (Paxil) 20 mg PO DAILY [facility] Last Admin: 01/01/18 08:13 Dose: 20 mg Potassium Chloride (Klor-Con) 40 meq PO DAILYP PRN PRN Reason: Hyperkalemia Last Admin: 12/30/17 12:38 Dose: 40 meq [facility] Admin: 01/01/18 08:11 Dose: 20 meq Sodium Chloride (Saline Flush) 10 ml IV Q8 [facility] Last Admin: 01/01/18 05:48 Dose: 10 ml Spironolactone (Aldactone) 25 mg PO DAILY [facility] Last Admin: 01/01/18 08:12 Dose: 25 mg Warfarin Sodium (Coumadin Per Pharmacy) 1 order PO [facility] [place] [facility] [place] Medical - PN: A/P - Time Spent With Patient Total time spent is greater than 50% in coordination of care (as documented) at patient's floor/unit and/or counseling patient: 15 - 24 minutes - Narrative A/P Narrative: Assessment- 87-year-old female presenting with decreased functional capacity, 3 days of cough, subjective chills, found to have tachycardia, fever, leukocytosis and infiltrate consistent with sepsis from pneumonia. * * community acquired pneumonia-clinically resolved. Continue levofloxacin * Sepsis. clinically resolved. Continue antibiotics,cultures negative so far * atrial fibrillation rate controlled. Anticoagulation on Coumadin * DM type II on metformin/basal prandial insulin * Diastolic CHF with preserved EF. Moderately severe pulmonary hypertension on echo.. * History of C daily creatinine 1.2. At baseline * History of dementia at baseline * Hypokalemia. Resolved * Discharge to SNF in 24 hours Plan * antibiotics for many tolerating physical therapy * SNF transfer in 24 hours * pre-existing medical condition management as above
[2018-01-01] MEDS ORDERED: DEXTROSE 31 GM ORAL.SUSP PO PRN (10:03)
[2018-01-01] MEDS ORDERED: ALBUTEROL SULFATE 2.5 MG/3 ML NEBULIZER NEB PRN (10:03)
[2018-01-01] MEDS ORDERED: POTASSIUM CHLORIDE 20 MEQ PACKET PO PRN (10:03)
[2018-01-01] MEDS ORDERED: ONDANSETRON 4 MG/2 ML VIAL IV PRN (10:03)
[2018-01-01] MEDS ORDERED: DEXTROSE 50% 50 ML VIAL IV PRN (10:03)
[2018-01-01] MEDS ORDERED: ACETAMINOPHEN 325 MG TABLET PO PRN (10:03)
[2018-01-01] MEDS ORDERED: WARFARIN 5 MG TABLET PO SCH (14:00)
[2018-01-01] MEDS ORDERED: INSULIN GLARGINE, HUMAN 1 UNIT/0.01 ML SQ SCH (21:00)
[2018-01-02] MEDS: 0.9 % SODIUM CHLORIDE 10 ML SYRINGE IV SCH (05:04)
[2018-01-02] MEDS: INSULIN LISPRO 1 UNIT/0.01 ML UNIT SQ SCH (07:19)
[2018-01-02] MEDS ORDERED: POTASSIUM CHLORIDE 20 MEQ TABLET PO SCH (08:00)
[2018-01-02] MEDS ORDERED: DILTIAZEM 180 MG CAP.XL.24H PO SCH (09:00)
[2018-01-02] MEDS ORDERED: LORATADINE 10 MG TABLET PO SCH (09:00)
[2018-01-02] MEDS ORDERED: PARoxetine 20 MG TABLET PO SCH (09:00)
[2018-01-02] MEDS ORDERED: MONTELUKAST 10 MG TABLET PO SCH (09:00)
[2018-01-02] MEDS ORDERED: SPIRONOLACTONE 25 MG TABLET PO SCH (09:00)
--- NOTE | 2018-01-02 09:25 | Discharge Summary ---
Medical - DS: Prov Patient information: Note initiated : 01/02/18 at 9:22 am Service Date, if different from initiated Date: [] Patient: Pratibha Palacio 87 y/o F admitted on 12/28/17 for Low Potassium/ Sepsis, Pneumonia. Chief Complaint: [] Date of admission: 12/28/17 17:29 Discharge date: 01/02/18 Primary care physician: aKr Xiong Consults: 12/28/17 15:30 Consult to Physician [CONS] Stat Comment: Consulting Provider: Sadie Morfin Reason For Exam: Physician to Consult 12/28/17 20:44 Consult to Physician [CONS] Routine Comment: wound right lateral coates +staph Consulting Provider: Manny Jacobo Reason For Exam: Physician to Consult 12/30/17 10:04 Consult to Physician [CONS] Routine Comment: Consulting Provider: [facility] Camilo Reason For Exam: Physician to Consult Medical - DS: Meds - Discharge Medications Prescriptions: Amoxicillin/Potassium Clav [Augmentin] 875 mg PO Q12H #6 tab Active and Home Medications: Home Medications Cholecalciferol (Vitamin D3) [D3 Dots] 2,000 unit PO DAILY 12/28/17 [History Confirmed 12/29/17 Last Taken 12/28/17 08:00] Diltiazem HCl [Diltiazem ER] 180 mg PO DAILY 12/28/17 [History Confirmed Last Taken 12/28/17 08:00] Furosemide [Lasix] 20 mg PO BID 12/28/17 [History Confirmed 12/29/17 Last Taken 12/28/17 08:00] Insulin Glargine,Hum.rec.anlog [Lantus Solostar] 10 unit SQ QHS 12/28/17 [ History Confirmed 12/29/17 Last Taken 12/27/17 20:00] Loratadine [Claritin] 10 mg PO DAILY 12/28/17 [History Confirmed 12/29/17 Last Taken 12/28/17 08:00] Metolazone [Zaroxolyn] 2.5 mg PO DAILY 12/28/17 [History Confirmed 12/29/17 Last Taken 12/28/17 08:00] Metoprolol Tartrate [Lopressor] 25 mg PO BID 12/28/17 [History Confirmed Last Taken 12/28/17 08:00] Montelukast [Singular] 10 mg PO DAILY 12/28/17 [History Confirmed 12/29/17 Last Taken 12/28/17 08:00] PARoxetine HCL [Paroxetine HCl] 20 mg PO DAILY 12/28/17 [History Confirmed 12/29 Last Taken 12/27/17 08:00] Accu-Chek 1 each FS BID 12/29/17 [History Confirmed 12/29/17 Last Taken 08:00] Potassium Chloride [Kdur] 20 meq PO DAILY 12/29/17 [History Confirmed 12/29/17 Last Taken 12/27/17 08:00] Warfarin [Coumadin] 6 mg PO DAILY 12/30/17 [History Confirmed 12/30/17 Last Taken Unknown] Amoxicillin/Potassium Clav [Augmentin] 875 mg PO Q12H #6 tab 01/02/18 [Rx Last Taken Unknown] Medical - DS: Hosp Hospital course: DISCHARGE DIAGNOSIS * community acquired pneumonia-clinically resolved. condition additional 3 days of Augmentin * Sepsis. clinically resolved. * atrial fibrillation rate controlled. Anticoagulation on Coumadin.INR therapeutic * DM type II continue metformin/basal prandial insulin * Diastolic CHF with preserved EF. Moderately severe pulmonary hypertension on echo. follow-up PCP for outpatient monitoring. * History of chronic kidney disease.creatinine 1.2. At baseline * History of dementia at baseline * Hypokalemia. Resolvedwith replacement BRIEF HOSPITAL COURSE Assessment- 87-year-old female presenting with decreased functional capacity, 3 days of cough, subjective chills, found to have tachycardia, fever, leukocytosis and infiltrate consistent with sepsis from pneumonia. 12/28 The patient is an 7-year-old female with a history of atrial fibrillation, dementia, chronic kidney disease stage III, congestive heart failure, type 2 diabetes presents from her living facility with confusion, chills and 3 days of cough. History is obtained speaking to the patient's family, speaking with Dr. Reid from the ED and in reviewing records. Patient is unable to give history due to dementia and hard of hearing. For about the last 3 days, the patient has had a cough. Apparently rales were also noted today. Family tells me that today while trying D lunch she seemed to be confused had difficulty doing so. There was no apparent choking or coughing associated with trying to eat. She also is feeling chilled at this afternoon. Today she seemed to be shivering and cold at times as well. Patient 's family says she always has some cough but it seems to be worse than usual. She normally uses nebulizer once or twice a day. In addition the patient had potassium of 2.9 and was sent to the ED due to that. The emergency department, the patient is noted at white count of 14,000, febrile to 100.7, was mildly tachycardic with a pulse of 103. Chest radiograph shows left upper lobe infiltrate, though the right lower lobe also appears to have some infiltrate versus atelectasis. She is being admitted the hospital for sepsis from pneumonia. 12/29 Patient will awake and alert today. Was able to eat some of her meals. Still fairly weak and frail, difficult to get a reliable review of systems due to dementia and her being hard of hearing. 12/30 Patient was able to get today and will decide a bed today, however didn't want to get up and try to stand with PT. Prefers just to lay in bed. Had low-grade fever to 99 range this afternoon. Discussed with one of her daughters, given her advanced age and her frailty, she may not recover from pneumonia, wanted to prepare them for that eventuality. She says "fine" when I ask how she is. 12/31 Sleeping soundly this morning, initially didn't want breakfast, then got up with PT to have breakfast. Spends most of her days in bed sleeping, her family notes that she has been doing that a lot lately. Become a lot less active since moving to [facility]. 01/01-patient doing remarkably better. Sitting on chair eating breakfast. No overnight events or concerns per staff. No telemetry events except for baseline A. fib rate controlled. According diet physical therapy. Anticipate transfer to SNF in 24 hours. Transfer to medical floor today. T-Max 99. White count 10,000. INR 1.8. Continue Coumadin dosing based on INR 01/02-day of discharge. patient doing a lot better. Discharging to SNF today. Continue post auscultation rehabilitation. Continue Augmentin for additional 3 days.no overnight fever chills or concerns per staff. Tolerating physical therapy. Discharge diagnosis: . - Time Spent with Patient Total time spent providing and/or coordinating discharge services: Greater than 30 minutes Medical - DS: Exam - Constitutional Vitals: Vital Signs Temp Pulse Pulse Resp BP BP BP 01/02/18 08:05 97.8 F 93 H 24 H 111/67 01/02/18 05:06 24 H 01/02/18 04:00 97.5 F 95 H 30 H 121/79 01/02/18 01:51 28 H 01/01/18 23:20 97.8 F 98 H 34 H 114/71 01/01/18 18:41 97.8 F 112 H 36 H 123/80 01/01/18 16:00 98.2 F 105 H 24 H 126/66 01/01/18 12:00 97.7 F 73 24 H 94/62 01/01/18 11:40 106 H 30 H 97/55 Pulse Ox 01/02/18 08:05 95 01/02/18 05:06 01/02/18 04:00 93 01/02/18 01:51 93 01/01/18 23:20 94 01/01/18 18:41 96 01/01/18 16:00 94 01/01/18 12:00 96 01/01/18 11:40 95 Intake and Output 01/01/18 01/02/18 01/02/18 21:59 05:59 13:59 Intake Total 480 / 480 100 / 100 Output Total 275 / 275 925 / 925 Balance 205 / 205 -825 / -825 Intake: Oral 480 / 480 100 / 100 Output: Urine Catheter Amount 925 / 925 Void Amount 275 / 275 Other: Meal Dinner Percent of Meal Consumed 10 Feeding Ability Independent Stool Size Moderate Moderate Stool Color Brown Brown Stool Consistency Loose Liquid # Bowel Movements 1 1 # of times incontinent of 1 1 Bowels Weight 130 lb Medical - DS: Data Labs on day of discharge: Labs from last 24 hours 01/02/18 04:27 PT 25.7 H INR 2.3 H Preliminary micro results at discharge 12/28/17 14:07 Blood Culture - Preliminary Blood 12/28/17 14:15 Blood Culture - Preliminary Blood Medical - DS: A/P - Patient/Caregiver Discharge Instructions Activity: as per physical therapy, resume usual activities as tolerated Diet: Renal/Consistent Carbs Additional Instructions: Follow-up PCP in 5 day Coumadin dosing based on INR I recommend SNF physician to check INR, CBC BMP UA as a posthospital follow-up and Chest x-ray in 1 week. Antibiotics for additional 3 days Continue aggressive bowel regimen to prevent constipation Continue fall precautions daily weights measurements and take additional 40 mg Lasix for 3 days if weight gain over 4 pounds over baseline or worsening shortness of breath and call primary care physician if inadequate response to Lasix Continue aggressive PT OT evaluation and treatment at SNF. ST eval and treatment if indicated All meals on chair sitting upright at 90 degrees to prevent aspiration Return to ER if worsening fever chills shortness of breath, diarrhea, bleeding Review risk and side effect profile of medications including antibiotics. Side effect may include mild to severe reaction including rash, diarrhea, cdiff and even which can be prevented by close follow-up with PCP and monitoring for side effects Continue renal/CC diet and activity as advised Discussed importance of medication adherence Please review medication list with patient prior to discharge Please schedule follow-up with PCP/Providers prior to discharge and provide printouts Portions of this chart may have been created with [employer] voice recognition software. Occasional wrong-word or ?sound-like? substitutions may have occurred due to the inherent limitations of voice recognition software. Please read the chart carefully and recognize, using context, where the substitutions have occurred. CC- PCP Prescriptions: Amoxicillin/Potassium Clav [Augmentin] 875 mg PO Q12H #6 tab - Follow up Plan Follow up with: Cali Pride MD [Family Provider] - [facility] Prognosis: Fair Rehab Potential: Fair I certify that the patient requires SNF services: Yes Overall status at discharge: patient is progressing back to baseline
[2018-01-02] MEDS: METOPROLOL TARTRATE 25 MG TABLET PO SCH (10:18)
[2018-01-03] MEDS ORDERED: LEVOFLOXACIN 750 MG/150 ML BAG IV SCH (09:00)
== END 2018-01-02 10:37 | DRG 871 ==
LOC: ED 13:10 → ICU 17:29 → MEDSUR 01-01 15:30
PROVIDERS: ADMIT Internal Medicine; ATTEND Internal Medicine